=== PATIENT | male | born 1980 | race Two or more races ===

== ENCOUNTER 2022-11-12 14:30 | Emergency (ER) | payer SELFPAY ==
[~2022-11-12] VITALS: Ht 170.2 cm; Wt 90.9 kg
[2022-11-12 14:49] VITALS: BP 125/83
[2022-11-12] MEDS ORDERED: CLIN300C8 PO (15:30)
[2022-11-12] MEDS ORDERED: IBUP800T27 PO (15:30)
== END 2022-11-12 15:33 | disposition home or self-care (01) ==
LOC: ER 14:30
DX: K04.7 Periapical abscess without sinus (principal); K02.9 Dental caries, unspecified